=== PATIENT | female | born 1945 | race Caucasian/White ===

== ENCOUNTER 2018-12-23 08:24 | Emergency (ER) | payer MEDICARE ==
[~2018-12-23] VITALS: Ht 157.5 cm; Wt 83.9 kg
--- NOTE | 2018-12-23 08:40 | NUR ---
BIB DAUGHTER, C/O ABD PAIN x 2 DAYS, WORST TODAY, +DIARRHEA, TO ER BED 10, HOOKED TO MONITOR, CHANGED TO GOWN, PROVIDED W WARM BLANKET, AWAITING MD WILDE
--- NOTE | 2018-12-23 08:41 | NUR ---
DR RICHMOND AT BEDSIDE
[2018-12-23] MEDS ORDERED: ONDANSETRON HCL/PF 4 MG/2 ML VIAL ONE (08:55)
[2018-12-23] MEDS ORDERED: MORPHINE SULFATE INJ 2 MG/ML DISP.SYRIN ONE (08:55)
--- NOTE | 2018-12-23 08:58 | NUR ---
[employer] MACHINE OPERATOR AT BEDSIDE
[2018-12-23 09:00] LABS: BASOPHILS # (AUTO) 0.1 /CMM (0.0-0.2); BASOPHILS % (AUTO) 0.6 % (0.0-2.0); EOSINOPHILS % (AUTO) 0.9 % (0.0-6.0); HEMATOCRIT 44 % (33-45); HEMOGLOBIN 15.1 g/dL (11.5-14.8); LYMPHOCYTES # (AUTO) 1.3 /CMM (0.8-4.8); LYMPHOCYTES % (AUTO) 15.9 % (20.0-44.0); MEAN CORPUSCULAR HGB CONC 34 g/dl (31.0-36.0); MEAN CORPUSCULAR VOLUME 100 fL (82-100); MONOCYTES # (AUTO) 0.6 /CMM (0.1-1.30); NEUTROPHILS # (AUTO) 6.1 /CMM (1.8-8.9); NEUTROPHILS % (AUTO) 75.6 % (43.0-81.0); PLATELET COUNT (AUTO) 168 /CMM (150-450)
[2018-12-23] MEDS ORDERED: MORPHINE SULFATE INJ 2 MG/ML DISP.SYRIN IV ONE (09:00)
[2018-12-23] MEDS ORDERED: ONDANSETRON HCL/PF 4 MG/2 ML VIAL IVP ONE (09:00)
[2018-12-23] MEDS ORDERED: METF500T7 PO (09:05)
[2018-12-23] MEDS ORDERED: GLIM4TAB2 PO (09:05)
[2018-12-23] MEDS ORDERED: CLOP75TA15 PO (09:05)
[2018-12-23] MEDS ORDERED: DULA1.5P SQ (09:05)
[2018-12-23] MEDS ORDERED: INSU100V7 SQ (09:05)
[2018-12-23] MEDS ORDERED: LOSA50TA39 PO (09:05)
[2018-12-23] MEDS ORDERED: FERR325T23 PO (09:05)
[2018-12-23] MEDS ORDERED: ATEN50TA PO (09:05)
[2018-12-23] MEDS ORDERED: ESCI10TA PO (09:05)
[2018-12-23] MEDS ORDERED: CHOL200026 PO (09:05)
[2018-12-23 09:08] LABS: CALCIUM, SERUM 8.8 mg/dL (8.5-10.1); CARBON DIOXIDE 25 mmol/L (21-32); CHLORIDE 105 mmol/L (98-107); CREATININE 0.7 mg/dL (0.6-1.3); GLUCOSE 214 mg/dL (74-106); POTASSIUM 3.7 mmol/L (3.5-5.1); SODIUM SERUM 142 mmol/L (136-145); UREA NITROGEN, BLOOD 10 mg/dL (7-18)
[2018-12-23 09:14] LABS: ALANINE AMINOTRANSFERASE 42 U/L (12-78); ALBUMIN 3.8 g/dL (3.4-5.0); ALKALINE PHOSPHATASE 143 U/L (46-116); ASPARTATE AMINOTRANSFERASE 28 U/L (15-37); BILIRUBIN,DIRECT 0.1 mg/dL (0.0-0.2); BILIRUBIN,TOTAL 0.5 mg/dL (0.2-1.0); LIPASE 163 U/L (73-393); TOTAL PROTEIN, SERUM 7.1 g/dL (6.4-8.2)
[2018-12-23] MEDS ORDERED: IOHEXOL-300 100 ML VIAL IV ONE (10:05)
--- NOTE | 2018-12-23 10:28 | NUR ---
URINE SAMPLE SENT TO LAB
[2018-12-23 11:09] LABS: APPEARANCE,URINE Clear (CLEAR); BILIRUBIN,URINE Negative (NEGATIVE); BLOOD, URINE Trace-lysed Ery/uL (NEGATIVE); COLOR,URINE Yellow (YELLOW); KETONES,URINE Negative (NEGATIVE); LEUKOCYTE ESTERASE ,URINE Negative (NEGATIVE); NITRITE, URINE Negative (NEGATIVE); PH,URINE 5.5 (5.0-8.0); PROTEIN,URINE Negative (NEGATIVE); UGLUCOSE Negative (NEGATIVE); UROBILINOGEN,URINE 0.2 EU/dL (0.2)
[2018-12-23 11:10] VITALS: BP 117/67
--- NOTE | 2018-12-23 11:10 | NUR ---
IV removed. Catheter intact and site benign. Pressure and 4x4 applied to site. No bleeding noted.Patient discharged to home in stable condition. Written and verbal after care instructions given. Patient verbalizes understanding of instruction.
[2018-12-23 11:17] LABS: BACTERIA,URINE Few /HPF (None Seen); RBC,URINE 0-2 /HPF (0-2); SQUAMOUS EPITHELIAL CELL,UR Few /HPF (None Seen); WBC,URINE 0-2 /HPF (0-3)
== END 2018-12-23 11:12 | disposition home or self-care (01) ==
LOC: ER 08:30
DX: E11.65 Type 2 diabetes mellitus with hyperglycemia (principal); K52.89 Other specified noninfective gastroenteritis and colitis; I10 Essential (primary) hypertension; F32.9 Major depressive disorder, single episode, unspecified; Z95.5 Presence of coronary angioplasty implant and graft; Z79.4 Long term (current) use of insulin
CPT/HCPCS: 36415; 74177; 80048; 80076; 81001; 83690; 84484; 85025; 85730; 87086; 93005; 96374; 96375; 99284; J2270; J2405; Q9967; 81000-TC